=== PATIENT | male | born 1985 | race Caucasian/White ===

== ENCOUNTER 2020-08-09 10:16 | Emergency (ER) | payer OTHER ==
--- NOTE | 2020-08-09 10:42 | ED ---
General Adult HPI - General Chief complaint: Extremity Injury, Upper Stated complaint: Arm numbness Time Seen by Provider: 08/09/20 10:31 Source: patient Mode of arrival: ambulatory Limitations: no limitations - History of Present Illness Initial comments: 35-year-old male patient presents to the emergency department today for evaluation of discomfort to his neck and left arm numbness and weakness. Patient states on 07/27/2020 use out fishing when he stood up and struck his head on a tree. States he felt his neck "jam" during the injury. States he had discomfort to his neck following, but never got it checked out. States that about 4-5 days ago he developed numbness down the lateral aspect of his arm starting in his shoulder and radiating down to the pinky. He states that he also developed weakness, he was able to perform 50 push-ups and cannot do even one now due to his arm collapsing. He denies any headaches, dizziness, or general weakness. Denies any use of blood thinning medications. Patient denies any recent rash, fever, chills, cough, shortness of breath, chest pain, abdominal pain, nausea, vomiting, diarrhea, constipation, back pain, hematuria, dysuria, urinary urgency, urinary frequency, or any other complaints. - Related Data Previous Rx's Medication Instructions Recorded predniSONE [Deltasone] 20 mg PO DIRECTED #24 tab 08/09/20 predniSONE [Deltasone] 20 mg PO DIRECTED #24 tab 08/09/20 Allergies Allergy/AdvReac Type Severity Reaction Status Date / Time No Known Allergies Allergy Verified 08/09/20 11:27 Review of Systems ROS Statement: Those systems with pertinent positive or pertinent negative responses have been documented in the HPI. ROS Other: All systems not noted in ROS Statement are negative. Past Medical History Past Medical History: Asthma History of Any Multi-Drug Resistant Organisms: None Reported Past Surgical History: No Surgical Hx Reported Past Psychological History: No Psychological Hx Reported Smoking Status: Never smoker Past Alcohol Use History: None Reported Past Drug Use History: Marijuana General Exam Limitations: no limitations General appearance: alert, in no apparent distress, other (This is a well- developed, well-nourished adult male patient in no acute distress. Vital signs upon presentation are temperature 97.5F, pulse 66, respirations 18, blood pressure 157/80, pulse ox 99% on room air.) Eye exam: Present: normal appearance, PERRL, EOMI. Absent: scleral icterus, conjunctival injection, periorbital swelling ENT exam: Present: normal exam, normal oropharynx, mucous membranes moist Neck exam: Present: normal inspection, full ROM. Absent: tenderness, meningismus, lymphadenopathy Respiratory exam: Present: normal lung sounds bilaterally. Absent: respiratory distress, wheezes, rales, rhonchi, stridor Cardiovascular Exam: Present: regular rate, normal rhythm, normal heart sounds. Absent: systolic murmur, diastolic murmur, rubs, gallop, clicks Extremities exam: Present: normal inspection, full ROM, normal capillary refill, other (Skin to the left arm is pink, warm, dry. Cap refill less than 3 seconds. Radial pulses 2+). Absent: tenderness, pedal edema, joint swelling, calf tenderness Neurological exam: Present: alert, oriented X3, CN II-XII intact Expanded Motor strength exam: RUE: 5, LUE: 5 Psychiatric exam: Present: normal affect, normal mood Skin exam: Present: warm, dry, intact, normal color. Absent: rash Course Vital Signs 08/09/20 08/09/20 10:25 14:12 Temperature 97.5 F L Pulse Rate 66 62 Respiratory 18 16 Rate Blood Pressure 157/80 113/75 O2 Sat by Pulse 99 98 Oximetry Medical Decision Making - Medical Decision Making 35-year-old male patient presented to the emergency department today reporting weakness to the left arm as well as numbness over the lateral aspect radiating from his neck down to his pinky finger. Physical examination was relatively unremarkable. He is neurovascularly intact. CT of the cervical spine was obtained and results were discussed with adjunct communications faculty member orthopedic rn Krystina Hernandez PA-c, she recommended starting steroids and providing prescription for taper dosing. She also requested we obtain MRI. I did discuss findings and plan with the patient. He will be discharged after MRI and I will call with results when available whether that is today or tomorrow. He is instructed to call orthopedics in the morning for an appointment. Return parameters were discussed in detail. He verbalizes understanding and agrees with this plan. Case discussed with my attending Dr. Marcos. - Radiology Data Radiology results: report reviewed, image reviewed CT cervical spine without contrast was obtained. Report was reviewed in its entirety. Impression by Dr. Frank showed no evidence for fracture dislocation. Axillary images and C3 to 4 level show some posterior marginal spurring 7 level show a left paracentral spur complex mildly effacing anterolateral thecal sac. Disposition Clinical Impression: Paresthesia of left upper extremity, Cervical radiculopathy Disposition: HOME SELF-CARE Condition: Good Additional Instructions: Take steroids as directed. Follow-up with orthopedic rn as soon as possible, call for an appointment. Return to emergency department for any new, worsening, or concerning symptoms. Prescriptions: predniSONE [Deltasone] 20 mg PO DIRECTED #24 tab predniSONE [Deltasone] 20 mg PO DIRECTED #24 tab Is patient prescribed a controlled substance at d/c from ED?: No Referrals: Ashley Hamilton DO [Doctor of Osteopathic Medicine] - 1-2 days Leonid Melendez DO [Primary Care Provider] - 1-2 days
[2020-08-09 10:48] VITALS: TEMP 97.5
--- NOTE | 2020-08-09 11:10 | CT ---
EXAMINATION TYPE: CT cervical spine wo con DATE OF EXAM: 08/09/2020 COMPARISON: NONE HISTORY: Neck pain, left arm numbness. Injury July 27. CT DLP: 456 mGycm. Automated Exposure Control for Dose Reduction was Utilized. TECHNIQUE: CT scan of the cervical spine is obtained without contrast, axial images are obtained, sa gittal and coronal reformatted images are also reviewed. FINDINGS: Cervical spine is visualized in its entirety from C1 through upper thoracic levels, demonst rates slight lateral convex scoliotic curvature positioning centered upper thoracic spine without roly dence of acute fracture or dislocation. Prevertebral soft tissue appears within normal limits. The C1-C2 articulation is within normal limits on the coronal images. Spine is straightened on sagittal i mages. Vertebral body heights and disc space heights are fairly well maintained. Spinal canal grossly preserved. Axial images at C3-C4 level shows some posterior and marginal spurring causing mild bilateral neural foraminal narrowing. Axial images at C6-C7 level show left paracentral spur disc complex mildly effac ing anterolateral thecal sac. Thyroid gland is felt within normal limits. Visualized lung apices are clear. IMPRESSION: As above.
[2020-08-09] MEDS ORDERED: methylPREDNISolone SOD SUCCI 125 MG/2 ML VIAL IM ONE (11:49)
[2020-08-09 14:13] VITALS: BP 113/75; PULSE 62; RESP 16
--- NOTE | 2020-08-09 15:21 | MR ---
MRI CERVICAL SPINE: CLINICAL HISTORY: Neck pain with left arm numbness after injury July 27 TECHNIQUE: Multiplanar, multisequence imaging of the cervical spine is performed without IV contrast. COMPARISON: CT cervical spine earlier today. FINDINGS: Sagittal images of the cervical spine show the craniocervical junction to appear within nor mal limits. The cervical and upper thoracic spinal cord is normal in course and caliber. It is diffi cult to exclude faint heterogeneous areas of increased signal as there is overlying artifact, slight increased signal is identified from C3 through the C7 level but this may be related to artifact which extends into the upper thoracic vertebral bodies. For reference sagittal images 7 and 8. Alignment i s stable and straightened. Slight grade 1 retrolisthesis C4 on C5. The vertebral body and intraverte bral disk heights are normal. The bone marrow signal intensity is within normal limits. Axial images at C3-C4 level shows mild broad-based right paracentral/foraminal disc protrusion mildly effaces the anterolateral thecal sac. Minimal right-sided neural foraminal narrowing sagittal image 10. Axial images at C4-C5 level shows similar right paracentral disc protrusion on image 35 minimally eff acing the anterior thecal sac. Axial images at C6-C7 level show more focal left paracentral disc protrusion effacing the anterolater al thecal sac correlating with sagittal image 5 and causing asymmetric moderate to severe left-sided neural foraminal narrowing, smaller right foraminal disc protrusion component causes mild right-sided neural foraminal narrowing. Other axial levels are within normal limits. There are subtle areas of increased cord signal for refe rence axial image 35 however this is once again more likely related to artifact. For reference artifa ct axial image 21 is noted through mid aspect of the spinal cord with horizontal low linear signal. IMPRESSION: Suboptimal study. Several multilevel degenerative changes as detailed above. Disc herniat ion C6-C7 level likely accounts for patient's left upper extremity radiculopathy type symptoms.
== END 2020-08-09 14:10 | disposition home or self-care (01) ==
LOC: EC 10:16
DX: M54.12 Radiculopathy, cervical region (principal); F12.90 Cannabis use, unspecified, uncomplicated; R20.2 Paresthesia of skin; R53.1 Weakness; J45.909 Unspecified asthma, uncomplicated
CPT/HCPCS: 72125; 72141; 99285; 96372; J2930